=== PATIENT | male | born 1985 | race Hispanic/Latino ===

== ENCOUNTER 2024-06-12 01:49 | Emergency (ER) | payer OTHER ==
[2024-06-12] MEDS ORDERED: NA CHLORIDE 0.9% 1,000 ML ONE (02:16)
--- NOTE | 2024-06-12 02:45 | RAD REPORT ---
EXAM: CT Abdomen and Pelvis Without Intravenous Contrast CLINICAL HISTORY: The patient is 39 years old and is Male; r flank pain TECHNIQUE: Axial computed tomography images of the abdomen and pelvis without intravenous contrast. Sagittal and coronal reformatted images were created and reviewed. This CT exam was performed using one or more of the following dose reduction techniques: automated exposure control, adjustment of the m A and/or kV according to patient size, and/or use of iterative reconstruction technique. COMPARISON: No relevant prior studies available. FINDINGS: LUNG BASES: Unremarkable. No mass. No consolidation. ABDOMEN: LIVER: The liver is enlarged and fatty. GALLBLADDER AND BILE DUCTS: The gallbladder is distended. No calcified gallstones or ductal dilat ation is seen. Suggestion of mild pericholecystic inflammation is noted. The gallbladder is contracted. PANCREAS: Mild fatty infiltration and atrophy of the pancreas is noted. No ductal dilation. SPLEEN: Unremarkable. ADRENALS: Unremarkable. No mass. KIDNEYS AND URETERS: No obstructing stones. No hydronephrosis. No perinephric fluid. STOMACH AND BOWEL: The stomach is distended with food contents. The small bowel is normal in sharita sofi. Stool is present throughout the colon. A few scattered colonic diverticula are noted without surrounding inflammation. There is no mucosal thickening or evidence of obstruction. PELVIS: APPENDIX: The appendix is normal in caliber without surrounding inflammation. BLADDER: Unremarkable. No stones. REPRODUCTIVE: Unremarkable as visualized. ABDOMEN and PELVIS: INTRAPERITONEAL SPACE: Unremarkable. No free air. No significant fluid collection. BONES/JOINTS: No acute fracture. SOFT TISSUES: There are small bilateral fat containing inguinal hernias. A fat-containing umbil ical hernia is present. VASCULATURE: Unremarkable. No abdominal aortic aneurysm. LYMPH NODES: Unremarkable. No enlarged lymph nodes. IMPRESSION: 1. No renal or ureteral calculus. 2. Distended gallbladder with pericholecystic inflammation. If there is clinical concern for acute gallbladder pathology, findings could be further evaluated with ultrasound or HIDA scan. Electronically signed by: Nathalie Veras MD 06/12/2024 02:41 AM [facility] Due to temporary technical issues with the PACS/ClearSaleing reporting system, reports are being tj d by the in-house radiologist without review as a courtesy to ensure prompt reporting the interpreting radiologist is fully responsible for the content of the report. Transcribed Date/Time: 06/12/2024 2:45 AM
[2024-06-12 02:59] LABS: Specific Gravity 1.026 (1.005-1.030); Sqamous Epithelial None Seen /HPF (None Seen); Urine Bacteria <20 /HPF (<20); Urine Bilirubin NEGATIVE (Negative); Urine Blood Negative (Negative); Urine Clarity Clear (Clear); Urine Color Light-Yellow (Yellow); Urine Culture Reflex Order NOT NEEDED; Urine Glucose NEGATIVE (Negative); Urine Ketones NEGATIVE (Negative); Urine Microscopic Reflex YN ORDER UMIC; Urine Mucus Slight /HPF (None Seen); Urine Nitrite NEGATIVE (Negative); Urine Protein 1+ (Negative); Urine RBC <5 /HPF (None Seen); Urine Sperm Present (None Seen); Urine Urobilinogen 1+ (Normal); Urine WBC <5 /HPF (<5); Urine pH 6.5 (5.0-7.0)
[2024-06-12 03:01] LABS: Absolute Basophils 0.2 K/uL (0-0.5); Absolute Eosinophils 0.1 K/uL (0-0.5); Absolute Lymphocytes (CBC) 1.8 K/uL (0.7-4.9); Absolute Monocytes 0.7 K/uL (0.1-1.3); Absolute Neutrophil 7.2 K/uL (1.8-8.0); Basophils % 2.1 % (0-1.3); Eosinophils % 1.4 % (0-4.4); Hematocrit 47.8 % (39.6-49.0); Hemoglobin 16.5 g/dL (13.6-17.9); Lymphocytes % 18.3 % (15.3-44.8); MCH 31.2 pg (27.0-35.0); MCHC 34.5 g/dL (32.0-36.0); MCV 90.4 fL (80-100); MPV 7.8 fL (7.6-11.3); Monocytes % 6.6 % (3.3-12.3); Neutrophils % 71.6 % (41.7-73.7); Platelets 234 thou/uL (152-406); RBC Red Blood Cell Count 5.29 M/uL (4.33-5.43); Red Cell Distribution Width 13.9 % (12.1-15.2)
[2024-06-12 03:11] LABS: Albumin/Globulin Ratio 1.1 (1.1-1.8); Anion Gap 10.9 mEq/L (5.0-15.0); Bilirubin Total 0.5 mg/dL (0.2-1.0); Globulin 3.8 g/dL (2.3-3.5); Potassium 3.9 mEq/L (3.5-5.1); Protein, Total 7.8 g/dL (6.4-8.2)
--- NOTE | 2024-06-12 05:21 | RAD REPORT ---
EXAM DESCRIPTION: Abdomen Exam Limited RadLex: US ABDOMEN LIMITED CLINICAL HISTORY: 39 years Male; ruq TECHNIQUE: Limited abdominal ultrasound was performed. COMPARISON: CT abdomen pelvis 06/12/2024 FINDINGS: No gallstones visualized. Sludge present. Pericholecystic fluid noted. Gallbladder wall measures 2 mm. Common bile duct measures 5 mm. Negative sonographic Singer sign. IMPRESSION: 1. No sonographic evidence of cholelithiasis. 2. Gallbladder sludge. 3. Nonspecific pericholecystic fluid. If clinical concern for acalculous cholecystitis exists, can pursue nuclear medicine HIDA scan. Electronically signed by: Wayne Vargas MD 06/12/2024 05:17 AM [id number] Due to temporary technical issues with the PACS/[employer]venu[employer] reporting system, reports are being signed by the in-house radiologist without review as a courtesy to ensure prompt reporting the interpreting radiologist is fully responsible for the content of the report. Transcribed Date/Time: 06/12/2024 5:21 AM
--- NOTE | 2024-06-12 05:27 | ER ---
Nurse's Notes [facility] Name: Johnny Berger Age: 39 yrs Sex: Male : 1985 Arrival Date: 06/12/2024 Time: 01:49 Bed 7 Private MD: Diagnosis: Right flank pain Presentation: 06/12 02:00 Chief complaint: Patient states: RIGHT FLANK PAIN, NAUSEA, AND VOMITING. ha1 02:00 Coronavirus screen: Vaccine status: Patient reports receiving the 2nd dose of the covid ha1 vaccine. PFIZER. Ebola Screen: No symptoms or risks identified at this time. Initial Sepsis Screen: Does the patient meet any 2 criteria? No. Patient's initial sepsis screen is negative. Does the patient have a suspected source of infection? No. Patient's initial sepsis screen is negative. Risk Assessment: Do you want to hurt yourself or someone else? Patient reports no desire to harm self or others. Onset of symptoms was June 12, 2024. 02:00 Method Of Arrival: Ambulatory ha1 02:00 Acuity: SUZANNE 3 ha1 Historical: - Allergies: 02:09 No Known Allergies; bm8 - Home Meds: 02:09 None [Active]; bm8 - PMHx: 02:09 None; bm8 - PSHx: 02:09 None; bm8 - Immunization history:: Adult Immunizations up to date. - Infectious Disease History:: Denies. - Family history:: not pertinent. - Social history:: Smoking status: Patient reports the use of cigarette tobacco products. Screenin:07 [facility] ED Fall Risk Assessment (Adult) History of falling in the last 3 months, bm8 including since admission No falls in past 3 months (0 pts) Confusion or Disorientation No (0 pts) Intoxicated or Sedated No (0 pts) Impaired Gait No (0 pts) Mobility Assist Device Used No (0 pt) Altered Elimination No (0 pt) Score/Fall Risk Level 0 - 2 = Low Risk Oriented to surroundings, Maintained a safe environment, Educated pt \T\ family on fall prevention, incl call for assistance when getting out of bed, Assessed \T\ reinforced patient's understanding of fall precautions, Hourly rounding (assess needs \T\ fall precautionary measures) done, Used ambulatory aids as needed (educated on \T\ assisted with), Used gait belt as appropriate. Abuse screen: Denies threats or abuse. Nutritional screening: No deficits noted. Tuberculosis screening: No symptoms or risk factors identified. Assessment: 02:16 General: Appears in no apparent distress. uncomfortable, Behavior is calm, cooperative. ay Pain: Complains of pain in right lower back Pain currently is 4 out of 10 on a pain scale. Pain began 6 hours ago. Neuro: Level of Consciousness is awake, alert, obeys commands, Oriented to person, place, time, situation, [employer] Installer are equal bilaterally Speech is normal. Cardiovascular: Capillary refill < 3 seconds. Respiratory: Airway is patent Respiratory effort is even, unlabored, Respiratory pattern is regular, symmetrical. GI: Abdomen is obese, Bowel sounds present X 4 quads. Abd is soft and non tender X 4 quads. Reports vomiting. : No signs and/or symptoms were reported regarding the genitourinary system. EENT: No signs and/or symptoms were reported regarding the EENT system. Derm: No signs and/or symptoms reported regarding the dermatologic system. Musculoskeletal: No signs and/or symptoms reported regarding the musculoskeletal system. 04:01 Reassessment: Patient appears in no apparent distress at this time. No changes from lg3 previously documented assessment. Patient and/or family updated on plan of care and expected duration. Pain level reassessed. Patient is alert, oriented x 3, equal unlabored respirations, skin warm/dry/pink. 05:40 Reassessment: Patient appears in no apparent distress at this time. No changes from lg3 previously documented assessment. Patient and/or family updated on plan of care and expected duration. Pain level reassessed. Patient is alert, oriented x 3, equal unlabored respirations, skin warm/dry/pink. Patient states feeling better. Patient states symptoms have improved. Vital Signs: 02:00 BP 155 / 106; Pulse 89; Resp 18 S; Temp 97.9(O); Pulse Ox 100% on R/A; Weight 114.76 ha1 kg; Height 5 ft. 7 in. ; 04:00 BP 147 / 81; Pulse 77; Resp 16 S; Pulse Ox 99% on R/A; lg3 05:40 BP 156 / 84; Pulse 79; Resp 17 S; Pulse Ox 99% on R/A; lg3 02:00 Body Mass Index 39.62 (114.76 kg, 170.18 cm) ha1 Bhaskar Coma Score: 02:09 Eye Response: spontaneous(4). Motor Response: obeys commands(6). Verbal Response: bm8 oriented(5). Total: 15. 02:16 Eye Response: spontaneous(4). Motor Response: obeys commands(6). Verbal Response: ay oriented(5). Total: 15. ED Course: 01:52 Patient arrived in ED. gm2 01:53 Lul Zarate MD is Attending Physician. rt 02:07 Patient has correct armband on for positive identification. Placed in gown. Bed in low bm8 position. Call light in reach. Side rails up X2. Client placed on continuous cardiac and pulse oximetry monitoring. NIBP monitoring applied. Pulse ox on. NIBP on. Door closed. Noise minimized. Warm blanket given. Pillow given. Verbal reassurance given. Head of bed elevated. 02:07 Arm band placed on right wrist. lg3 02:07 No provider procedures requiring assistance completed. Initial lab(s) drawn, by me, bm8 sent to lab. Inserted saline lock: 18 gauge in right antecubital area, using aseptic technique. Blood collected. Flushed with 10 mL NS. Patient maintains SpO2 saturation greater than 95% on room air. Response to oxygen therapy: symptoms improved. 02:10 Florin Quintero, RN is Primary Nurse. bm8 02:19 Triage completed. ha1 02:22 CT Abd/Pelvis - Without Contrast In Process Unspecified. EDMS 03:40 US Abdomen Limited In Process Unspecified. EDMS 05:41 IV discontinued, intact, bleeding controlled, No redness/swelling at site. Pressure lg3 dressing applied. Administered Medications: 02:26 Drug: NS 0.9% IV 1000 ml IV at 1 bolus Per protocol; to be given as a bolus over 60 lg3 minutes Route: IV; Rate: 1 bolus; Site: right antecubital; 03:55 Follow up: Response: No adverse reaction; IV Status: Completed infusion; IV Intake: lg3 1000ml Medication: 02:07 VIS not applicable for this client. bm8 Intake: 03:55 IV: 1000ml; Total: 1000ml. lg3 Outcome: 05:27 Discharge ordered by . rt 05:41 Discharged to home ambulatory, lg3 05:41 Condition: stable 05:41 Discharge instructions given to patient, Instructed on discharge instructions, follow up and referral plans. Demonstrated understanding of instructions, follow-up care, 05:42 Patient left the ED. lg3 Signatures: Dispatcher [employer] Sultana Hassan, RN RN lg3 Roxy Vigil, RN RN ha1 Lul Zarate MD MD rt Cynthia Wang gm2 Florin Quintero, RN RN bm8 Adelso Reyes RN RN ay Corrections: (The following items were deleted from the chart) 05:41 04:00 BP 147 / 81; Pulse 71bpm; Resp 18bpm; Pulse Ox 98% RA; ay lg3
--- NOTE | 2024-06-12 05:27 | EDPHYS ---
Physician Documentation [facility] Name: Johnny Berger Age: 39 yrs Sex: Male : 1985 Arrival Date: 06/12/2024 Time: 01:49 Bed 7 Private MD: ED Physician Lul Zarate HPI: 06/12 03:34 This 39 yrs old Male presents to ER via Ambulatory with complaints of Possible rt Kidney Stone, Back Pain, Nausea/Vomiting. 03:34 Patient with previous history of kidney stones presents to the ED with right flank pain rt with nausea and vomiting starting at about 10 PM. Patient states that the pain was intense, however, did significantly improve and is only minimal currently. Denies other acute complaints at this time. Symptoms are moderate in severity, no other aggravating elevating factors. Patient states that the symptoms are similar to when he has had previous kidney stones. Historical: - Allergies: 02:09 No Known Allergies; bm8 - Home Meds: 02:09 None [Active]; bm8 - PMHx: 02:09 None; bm8 - PSHx: 02:09 None; bm8 - Immunization history:: Adult Immunizations up to date. - Infectious Disease History:: Denies. - Family history:: not pertinent. - Social history:: Smoking status: Patient reports the use of cigarette tobacco products. ROS: 03:34 Constitutional: Negative for fever, chills, and weight loss, Cardiovascular: Negative rt for chest pain, palpitations, and edema, Respiratory: Negative for shortness of breath, cough, wheezing, and pleuritic chest pain, MS/Extremity: Negative for injury and deformity, Skin: Negative for injury, rash, and discoloration, Neuro: Negative for headache, weakness, numbness, tingling, and seizure, 03:34 Abdomen/GI: Positive for nausea and vomiting, Negative for abdominal pain, 03:34 Back: Positive for flank pain, Negative for decreased range of motion, Exam: 03:34 Constitutional: This is a well developed, well nourished patient who is awake, alert, rt and in no acute distress. Head/Face: Normocephalic, atraumatic. Chest/axilla: Normal chest wall appearance and motion. Nontender with no deformity. No lesions are appreciated. Cardiovascular: Regular rate and rhythm with a normal S1 and S2. No gallops, murmurs, or rubs. Normal PMI, no JVD. No pulse deficits. Respiratory: Lungs have equal breath sounds bilaterally, clear to auscultation and percussion. No rales, rhonchi or wheezes noted. No increased work of breathing, no retractions or nasal flaring. Abdomen/GI: Soft, non-tender, with normal bowel sounds. No distension or tympany. No guarding or rebound. No evidence of tenderness throughout. Skin: Warm, dry with normal turgor. Normal color with no rashes, no lesions, and no evidence of cellulitis. MS/ Extremity: Pulses equal, no cyanosis. Neurovascular intact. Full, normal range of motion. Neuro: Awake and alert, GCS 15, oriented to person, place, time, and situation. Cranial nerves II-XII grossly intact. Motor strength 5/5 in all extremities. Sensory grossly intact. Cerebellar exam normal. Normal gait. Vital Signs: 02:00 BP 155 / 106; Pulse 89; Resp 18 S; Temp 97.9(O); Pulse Ox 100% on R/A; Weight 114.76 ha1 kg; Height 5 ft. 7 in. ; 04:00 BP 147 / 81; Pulse 77; Resp 16 S; Pulse Ox 99% on R/A; lg3 05:40 BP 156 / 84; Pulse 79; Resp 17 S; Pulse Ox 99% on R/A; lg3 02:00 Body Mass Index 39.62 (114.76 kg, 170.18 cm) ha1 Bhaskar Coma Score: 02:09 Eye Response: spontaneous(4). Motor Response: obeys commands(6). Verbal Response: bm8 oriented(5). Total: 15. 02:16 Eye Response: spontaneous(4). Motor Response: obeys commands(6). Verbal Response: ay oriented(5). Total: 15. MDM: 02:03 Medical Screening Exam initiated rt 05:28 Differential diagnosis: Kidney stone, pyelonephritis, cholecystitis, cholelithiasis. rt Data reviewed: vital signs, nurses notes, lab test result(s), radiologic studies. Independent interpretation of the following test(s) in the Emergency Department CT Scan: My interpretation is No ureteral stone seen on interpretation of CT scan images. ED course: Patient without signs of ureteral stone, hematuria, possibly had passed a stone recently. During stay in the ED, patient reports that is asymptomatic. Patient with mild transaminitis, states that he had a fatty liver and that this is a chronic problem. No signs of biliary ductal dilation. Patient with nonspecific pericholecystic fluid, however, he has no focal right upper quadrant or sonographic Singer sign. Patient clinically does not have cholecystitis. I did inform patient of these findings, do not believe that he requires admission at this time but he was instructed to return for worsening symptoms.. 06/12 02:09 Order name: CBC with Diff; Complete Time: 03:14 rt 06/12 02:09 Order name: CMP; Complete Time: 03:14 rt 06/12 02:09 Order name: Lipase; Complete Time: 03:14 rt 06/12 02:09 Order name: Urinalysis w/ reflexes; Complete Time: 03:14 rt 06/12 02:09 Order name: CT Abd/Pelvis - Without Contrast; Complete Time: 02:47 rt 06/12 03:20 Order name: US Abdomen Limited; Complete Time: 05:25 rt 06/12 02:09 Order name: IV Saline Lock; Complete Time: 02:10 rt 06/12 02:09 Order name: Labs collected and sent; Complete Time: 02:10 rt Administered Medications: 02:26 Drug: NS 0.9% IV 1000 ml IV at 1 bolus Per protocol; to be given as a bolus over 60 lg3 minutes Route: IV; Rate: 1 bolus; Site: right antecubital; 03:55 Follow up: Response: No adverse reaction; IV Status: Completed infusion; IV Intake: lg3 1000ml Disposition Summary: 06/12/24 05:27 Discharge Ordered Notes: Location: Home rt Problem: new rt Symptoms: are resolved rt Condition: Stable rt Diagnosis - Right flank pain rt Followup: rt - With: Private Physician - When: 2 - 3 days - Reason: Followup: rt - With: Emergency Department - When: As needed - Reason: Worsening of condition Discharge Instructions: - Discharge Summary Sheet rt - Flank Pain, Adult rt Forms: - Medication Reconciliation Form rt - Antibiotic Education rt - Prescription Opioid Use rt - Patient Portal Instructions rt - Leadership Thank You Letter rt Signatures: Dispatcher [employer] Sultana Hassan RN RN lg3 Lul Zarate MD MD rt Quintero, Florin, RN RN bm8
[2024-06-12 05:48] VITALS: TEMP 97.9
[2024-06-12 05:50] VITALS: O2SAT 99
[2024-06-12 05:51] VITALS: BP 156/84
== END 2024-06-12 05:42 | disposition home or self-care (01) ==
LOC: ER 01:49
DX: R10.9 Unspecified abdominal pain (principal); R11.2 Nausea with vomiting, unspecified; F17.210 Nicotine dependence, cigarettes, uncomplicated
CPT/HCPCS: 85025; 81001; 36415; 83690; 80053; 74176; 76705; 96360; 99284; J7030